=== PATIENT | male | born 1985 | race Two or more races ===

== ENCOUNTER 2017-06-08 20:13 | Emergency (ER) | payer SELFPAY ==
[~2017-06-08] VITALS: Ht 170.2 cm; Wt 90.7 kg
[2017-06-08] MEDS ORDERED: oxyCODONE HCL/Acetaminophen 5/325mg ORAL ONE (20:45)
[2017-06-08] MEDS ORDERED: Tetanus/Diptheria/Pertussis Vaccine 0.5ml Syr IM ONE (20:45)
--- NOTE | 2017-06-08 21:04 | Emergency Room Report ---
History of Present Illness General Chief Complaint: Lower Extremity Injury Source: Patient Present Illness HPI 31YOM with pain/swelling to right knee and right lateral ankle after "playing with kids" yesterday Twisted right ankle backwards, impacted right knee Unknown last tetanus Abrasion to right knee Allergies: Coded Allergies: No Known Allergies (Unverified , 06/08/17) Patient History Past Medical History: none Past Surgical History: none Pertinent Family History: none Social History: Denies: alcohol use, drug use, smoking Immunizations: UTD Reviewed Nursing Documentation: PMH: Agreed, PSxH: Agreed Nursing Documentation-PMH Past Medical History: No Stated History Review of Systems All Other Systems: negative except mentioned in HPI Physical Exam Vital Signs Date Time Temp Pulse Resp B/P Pulse Ox O2 Delivery O2 Flow Rate FiO2 06/08/17 20:22 99.0 80 18 146/89 98 Room Air Sp02 EP Interpretation: reviewed, normal General Appearance: normal inspection, well appearing, no apparent distress, alert, GCS 15, non-toxic Head: normocephalic, atraumatic Eyes: bilateral eye EOMI, bilateral eye PERRL ENT: normal ENT inspection, hearing grossly normal, normal voice Neck: normal inspection, full range of motion, supple, no bony tend Respiratory: normal inspection, lungs clear, normal breath sounds, no respiratory distress, no retraction, no wheezing Cardiovascular #1: regular rate, rhythm, no edema Gastrointestinal: normal inspection, normal bowel sounds, non tender, soft, no guarding, no hernia Genitourinary: no CVA tenderness Musculoskeletal: other - Right knee: patella abrasion. No ttp. Right ankle with uniform swelling. Palpable crepitus lateral ankle. 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, motor strength/tone normal, speech normal Psychiatric: normal inspection, judgement/insight normal, mood/affect normal Skin: normal inspection, normal color, no rash Procedures Splinting Splinting : Consent: Verbal Hand-Made Type: plaster Splint: U-shaped and posterior long right leg splint Pre-Proc Neuro Vasc Exam: normal Post-Proc Neuro Vasc Exam: normal Patient Tolerated: Well Complications: None Medical Decision Making Diagnostic Impression: Primary Impression: Right fibular fracture Qualified Codes: S82.424A - Nondisplaced transverse fracture of shaft of right fibula, initial encounter for closed fracture Additional Impression: Abrasion, right knee, initial encounter ER Course Right tib/fib 2 views ED review Distal shaft fx. Mild displacement Right knee 3 views ED review No obvious fx, dislocation, soft tissue swelling Right ankle 3 views ED review Distal fibula fx, no dislocation or soft tissue swelling Splint placed for fx Rx [place] Tetanus updated Abrasion cleaned out and bandaged PMD referral for Orhto followup Last Vital Signs Date Time Temp Pulse Resp B/P Pulse Ox O2 Delivery O2 Flow Rate FiO2 06/08/17 20:22 99.0 80 18 146/89 98 Room Air Status: improved Disposition: HOME, SELF-CARE JEAN GARVIN M.D. Jun 08, 2017 21:04
[2017-06-08] MEDS ORDERED: NORCO 5-325 TA1 EACH ORAL (21:06)
[2017-06-08 21:20] VITALS: BP 136/78
--- NOTE | 2017-06-09 11:20 | Diagnostic Imaging Report ---
Indication: PAIN Technique: 3 views of the right ankle Comparison: none Findings: There is a spiral fracture, comminuted, minimally displaced, of the distal fibular shaft. There is widening of the medial ankle mortise. No definite tibial fracture demonstrated. Impression: Spiral fracture of the distal fibular shaft Widening of the medial ankle mortise, consistent with medial ligamentous injury This agrees with the ER physician interpretation documented in the electronic medical record
--- NOTE | 2017-06-09 11:21 | Diagnostic Imaging Report ---
Indications: PAIN Technique: Three views of the right knee Comparison: None Findings: No acute fractures. No dislocations. Joint spaces are preserved. No radiopaque foreign body. Normal mineralization. Impression: No acute process
--- NOTE | 2017-06-09 11:22 | Diagnostic Imaging Report ---
Indication: PAIN Technique: Multiple views of the right ribs Comparison: None Findings: No acute fractures. No gross pneumothorax Impression: Negative
== END 2017-06-08 21:20 | disposition home or self-care (01) ==
LOC: EMR 20:28
DX: S82.424A Nondisplaced transverse fracture of shaft of right fibula, initial encounter for closed fracture (principal); S80.211A Abrasion, right knee, initial encounter; X58.XXXA Exposure to other specified factors, initial encounter; Y93.9 Activity, unspecified; Y92.9 Unspecified place or not applicable; Z23 Encounter for immunization
CPT/HCPCS: 29515; 90471; 90715